=== PATIENT | male | born 1950 | race Caucasian/White ===

== ENCOUNTER 2017-08-10 12:19 | Emergency (ER) | payer MEDICARE, MEDICAID ==
[~2017-08-10] VITALS: Ht 170.2 cm; Wt 54.4 kg
[2017-08-10] MEDS ORDERED: LEVOFLOXACIN 500MG 100 ML IV ONE (12:45)
[2017-08-10] MEDS ORDERED: ALBUTEROL SULF 2.5 MG/0.5ML(0.5%) NEB SOLN HHN ONE (12:45)
[2017-08-10] MEDS ORDERED: IPRATROPIUM BROM 0.5 MG/2.5ML INH SOL HHN ONE (12:45)
[2017-08-10] MEDS ORDERED: methylPREDNISolone SOD SUCC 125 MG/2 ML VL IV ONE (12:45)
[2017-08-10 13:26] LABS: Basophils # (auto) 0.1 uL; Basophils % (auto) 0.7 % (0.0-2.0); Eosinophils # (auto) 0.1 uL; Eosinophils % (auto) 0.7 % (0.0-7.0); Hematocrit 53.4 % (41.0-53.0); Hemoglobin 17.9 g/dL (13.5-17.5); Lymphocytes # (auto) 1.1 uL; Lymphocytes % (auto) 11.7 % (10.0-50.0); Mean Corpuscular Hemoglobin 32.7 pg (28.0-32.0); Mean Corpuscular Hgb Conc. 33.5 g/dL (32.0-36.0); Mean Corpuscular Volume 97.6 fL (80.0-100.0); Monocytes # (auto) 0.8 uL; Monocytes % (auto) 8.2 % (0.0-12.0); Neutrophils # (auto) 7.2 uL; Neutrophils % (auto) 78.7 % (37.0-80.0); Nucleated Red Blood Cells % 0.1 %; Platelet Count (auto) 237 10^3/uL (140-450); Red Blood Cells 5.47 10^6/uL (4.5-5.90); Red Cell Distribution Width 13.9 % (11.8-14.3); White Blood Cell 9.2 10^3/uL (4.4-10.8)
[2017-08-10 13:46] LABS: Albumin 3.7 g/dL (3.4-5.0); BUN/Creatinine Ratio 18.2; Calcium 9.2 mg/dL (8.5-10.1); Magnesium 1.8 mg/dL (1.6-2.6); Potassium 3.7 mmol/L (3.5-5.1)
[2017-08-10 13:51] LABS: Bilirubin, Total 0.7 mg/dL (0.2-1.0); Lactic Acid w/Reflex 2.5 mmol/L (0.4-2.0); Total Protein 7.7 g/dL (6.4-8.2)
[2017-08-10] MEDS ORDERED: IOHEXOL 350 MG/ML 100ML IJ ONE (14:29)
[2017-08-10] MEDS ORDERED: ETOMIDATE (2MG/ML) 20ML VIAL IV ONE ×2 (19:56→20:00)
[2017-08-10] MEDS ORDERED: SUCCINYLCHOLINE CHLORIDE 20 MG/ML 10ML VIAL IV ONE ×2 (19:56→20:00)
[2017-08-10] MEDS ORDERED: MIDAZOLAM DRIP 50 mg/50mL 50 ML IV ONE (19:57)
[2017-08-10 20:30] VITALS: BP 103/55
[2017-08-10] MEDS: MIDAZOLAM DRIP 50 mg/50mL 50 ML IV SCH ×2 (20:30→20:37)
[2017-08-10] MEDS ORDERED: PROPOFOL 0 ML IV ONE (20:31)
[2017-08-10] MEDS ORDERED: SODIUM CHLORIDE 0.9% 1,000 ML IV ONE (21:45)
== END 2017-08-10 22:13 | disposition short-term general hospital (02) ==
LOC: ER 12:19
DX: J05.10 Acute epiglottitis without obstruction (principal); F17.210 Nicotine dependence, cigarettes, uncomplicated; J44.9 Chronic obstructive pulmonary disease, unspecified
CPT/HCPCS: 31500; 36415; 36600; 71045; 71275; 80053; 82805; 82962; 83605; 83735; 83880; 84484; 85025; 87040; 87070; 87205; 93005; 94640; 96365; 96375; 99291; J0330; J1956; J2250; J2930; J7030; Q9967; 94002; J2704